=== PATIENT | male | born 1985 | race Hispanic/Latino ===

== ENCOUNTER 2019-01-15 16:42 | Emergency (ER) | payer BC ==
[2019-01-15 16:55] VITALS: BP 134/77
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
== END 2019-01-15 17:28 | disposition home or self-care (01) ==
LOC: ED 16:42 → EEVIPCON 16:42 → ED 17:28
DX: Z00.8 Encounter for other general examination (principal)
CPT/HCPCS: 99281

== ENCOUNTER 2019-03-30 15:27 | Emergency (ER) | payer SELFPAY | END 2019-03-30 15:30 | disposition left against medical advice (07) | LOC: ED 15:27 | DX: R46.89 Other symptoms and signs involving appearance and behavior (principal); Z53.21 Procedure and treatment not carried out due to patient leaving prior to being seen by health care provider ==